=== PATIENT | male | born 1930 | race Caucasian/White ===

== ENCOUNTER 2016-08-05 11:36 | Inpatient (IN) | payer MEDICARE, BC ==
[~2016-08-05] VITALS: Ht 169.4 cm; Wt 65.7 kg
[~2016-08-05 11:36] MED LIST: AMBIEN DPS10 MG PO; CARDIZEM CD360 MG PO; COUMADIN DPS3 MG PO; HYDROCODONE 5MG/5 MG PO; LOPRESSOR DPS50 MG PO; PROTONIX40 MG PO; SYNTHROID DPS0.05 MG PO; THERAPEUTIC MUL1 TAB PO; ZESTRIL DPS10 MG PO
--- NOTE | 2016-08-06 11:08 | CO ---
ADMIT: 08/05/2016 RM/LOC: 422 [facility] MR#: [id number] [address] [address] PAULETTE EASON [address] [place] [address] Consultation SEX: M AGE: 85 : 1930 DATE OF CONSULTATION: 08/06/2016 ATTENDING PHYSICIAN: Jeb Mahoney CONSULTING PHYSICIAN: Nereida Peerz APRN TIME IN: 0915 hours. TIME OUT: 0950 hours. REASON FOR CONSULTATION: Supportive care consultation was requested by Dr. Mahoney for discussion of goals for care. HISTORY OF PRESENT ILLNESS: Mr. Eason is an unfortunate 85-year-old male with a history of metastatic colon cancer. He presented to Dr. Elizondo's office on 08/05 and was found to have tachycardia hypotension and also profuse diarrhea. He had recently started a new course of chemotherapy which had actually been recently dose reduced within the last week. He has had progressive weakness related to his treatment and he states that things are not going all that well at home. He was admitted and further evaluation did reveal C. difficile and neutropenia. He has been verbalizing to providers that he is tired of living in his current condition. Due to his complexities, supportive care consultation was requested to discuss goals for care. In terms of advanced directives, the patient is a do not resuscitate/do not intubate status. The patient's Tiarra Eason whose phone #[phone] and [phone] is the patient's next-of-kin medical decision maker. I do not see that he has a living will or power of contract attorney on file. Symptomatically, the patient states that overall he is fairly comfortable. He is very tired as he did not sleep well last night. He reports that his appetite has been poor and that he has had progressive and ongoing weight loss. He does suffer with anxiety and sadness related to his diagnosis. PAST MEDICAL HISTORY: 1. Metastatic colon cancer. 2. Atrial fibrillation with RVR. 3. History of DVT. ALLERGIES: THE PATIENT IS ALLERGIC TO PENICILLIN. CURRENT MEDICATIONS: Please see the patient's MAR for specific routes and dosages. His current medications are as follows. 1. Normal saline. 2. D5 normal saline. 3. Flagyl. 4. Sandostatin. 5. Maalox. 6. Tylenol. ADMIT: 08/05/2016 RM/LOC: 422 [facility] MR#: [id number] [address] [address] PAULETTE EASON [address] [place] [address] Consultation SEX: M AGE: 85 : 1930 7. Surfak. 8. Nitrostat. SOCIAL HISTORY: The patient is . He is retired truck rental service attendant. He lives in his acreage and enjoys caring for his acreage. He is a previous smoker. FAMILY HISTORY: He has multiple family members with a history of cardiovascular disease. He reports that his brother of colon cancer. FUNCTIONAL REVIEW: Prior to his hospital stay, he was at home. He states that he could perform his ADLs, but then it was getting more difficult. His palliative performance scale prior to admission was around 60%. Currently, he is mostly in bed. He is requiring considerable to mainly assistance with ADLs. His intake is reduced. His current palliative performance scale is around 50%. REVIEW OF SYSTEMS: A 10-point review of systems was completed and other than those pertinent positives and negatives mentioned the HPI, it is negative. PHYSICAL EXAMINATION: GENERAL: The patient examined in the bed. He is in no acute distress. VITAL SIGNS: Temperature 99.4, pulse 155, respirations 14, blood pressure 98/57, oxygen 93% on room air. HEENT: Head is normocephalic. Pupils are equal, round, and reactive with a diameter of 3 mm bilaterally. Oral mucosa pink and moist with fair dentition. NECK: Supple. RESPIRATORY: Respirations are equal, nonlabored at rest. LUNGS: Diminished in the bases bilaterally. CARDIOVASCULAR: Tachycardic. No edema noted. GASTROINTESTINAL: Soft and nontender. Bowel sounds are positive. MUSCULOSKELETAL: Generalized weakness. No obvious joint deformities. INTEGUMENTARY: Skin turgor is fair. No rashes or wounds noted. NEUROLOGIC: Alert and oriented x3. He will follow commands. PSYCHIATRIC: Calm and cooperative. No agitation or delirium noted. DIAGNOSTIC DATA: Sodium 137, potassium 4.1, BUN 17, creatinine 1.0, total protein 5.3, albumin 2.2. WBC is 2.1, hemoglobin 7.6, hematocrit 23.0, and platelets 52. IMPRESSION: 1. Debility. 2. Fatigue. 3. Anxiety. 4. Malaise. 5. Weight loss. 6. Severe protein-calorie malnutrition. 7. Metastatic colon cancer. ADMIT: 08/05/2016 RM/LOC: 422 [facility] MR#: [id number] [address] [place] [id number] PAULETTE EASON [address] [place] [id number] Consultation SEX: M AGE: 85 : 1930 8. Clostridium difficile. 9. Palliative care. 10.The patient is a DNR/DNI. PLAN OF TREATMENT: 1. I was able to meet with the patient at the bedside. We reviewed his overall status and goals for the time ahead. He is tearful and states that he is tired of living in his current poor quality of life. We did discuss the time ahead and he states that he is willing to do more treatment, but feels that he is likely nearing the point where he wants to focus more on comfort only. We did review the hospice philosophy for the future and he states that although he is not ready for hospice quite yet, he states that he may be nearing this time. He struggles with his family as he states that they are having a hard time accepting his decline. Much support was given to him. He also struggles spiritually in terms of what is after this life. I did offer to contact his fish flipper or have a social worker health services see, but he declined these offers. He is appreciative of our discussion and agrees to ongoing discussions in the time ahead. 2. The patient does confirm that he wishes to be a do not resuscitate/do not intubate status and this is reflected on the chart. 3. We will continue to follow along in the care of this patient. Unfortunately, the supportive care PICK UP DRIVER will be available starting this afternoon through 08/14. I will have the Supportive Care nurse to check on the patient to offer support during the time ahead. We would like to thank Dr. Mahoney for the invitation to participate in this patient's care. Total consultation time was 35 minutes from 0915 hours to 0950 hours with 20 minutes from 0920 hours to 0940 hours spent [id number] with the patient providing counseling and coordination of care. Nereida Perez, LEONOR/ tyral JOB #: [id number] CC: Jeb Mahoney, Attending Physician Jeb Mahoney, Family Physician
[2016-08-08] MEDS ORDERED: KLOR-CON 1010 MEQ PO (21:03)
[2016-08-08] MEDS ORDERED: NEURONTIN DPS300 MG PO (21:03)
[2016-08-08] MEDS ORDERED: PROTONIX40 MG PO (21:03)
[2016-08-08] MEDS ORDERED: TIAZAC180 MG PO (21:03)
[2016-08-08] MEDS ORDERED: NORCO 5-325 TA1 EACH PO (21:04)
[2016-08-08] MEDS ORDERED: AMBIEN DPS10 MG PO (21:04)
[2016-08-08] MEDS ORDERED: ZOFRAN8 MG PO (21:04)
[2016-08-08] MEDS ORDERED: SYNTHROID DPS0.05 MG PO (21:04)
[2016-08-08] MEDS ORDERED: [UNRECOGNIZED DRUG - OTHER] PO (21:04)
[2016-08-08] MEDS ORDERED: CLINDAMYCIN TP (21:05)
[2016-08-08] MEDS ORDERED: VISTARIL-DPS25 MG PO (21:05)
[2016-08-08] MEDS ORDERED: THERA1 EACH PO (21:06)
[2016-08-08] MEDS ORDERED: MARYS PO (21:06)
[2016-08-08] MEDS ORDERED: TEARS NATURAL D15 ML OU (21:06)
[2016-08-08] MEDS ORDERED: ZANTAC DPS150 MG PO (21:06)
[2016-08-08] MEDS ORDERED: FLAGYL-DPS500 MG PO (21:07)
[2016-08-08] MEDS ORDERED: GRANIX480 MCG/0. SQ (21:07)
--- NOTE | 2016-08-11 08:25 | HP ---
ADMIT: 08/05/2016 RM/LOC: 422 [facility] MR#: [id number] [address] [place] [id number] PAULETTE EASON [address] [place] [address] History and Physical SEX: M AGE: 85 : 1930 DATE OF SERVICE: 08/05/2016 REASON FOR HOSPITALIZATION: Dehydration and diarrhea. HISTORY OF PRESENT ILLNESS: An 85-year-old male patient, who Dr. Elizondo saw in his clinic today, and the patient was found to be tachycardic, hypotensive, and complained of persistent diffuse diarrhea. He was also noted to have had a recent new course of chemotherapy which was actually dose reduced as a trial within the last week. Since that time, he has had progressive weakness, and today the patient reports taht he is unable to stand up out of a chair on his own power. The patient does have a medical history of atrial fibrillation with rapid ventricular response, metastatic colon cancer. He has had a prior history of DVT and pneumonia. SOCIAL HISTORY: He is . He has family at bedside. FAMILY HISTORY: Noncontributory. REVIEW OF SYSTEMS: Patient reports general weakness, diarrhea. No current vomiting. He has had some nausea. He denies any specific fevers or chest pains. PHYSICAL EXAMINATION: GENERAL: On exam, the patient is pleasant, but obviously weak. He is lying supine in bed. HEART: Tachycardic and regular. LUNGS: Clear. ABDOMEN: Hyperactive. EXTREMITIES: He has no peripheral edema. LABORATORY DATA: His BUN is 17, creatinine 1.0, magnesium 1.9. Hemoglobin is ADMIT: 08/05/2016 RM/LOC: 422 [facility] MR#: [id number] [address] [place] [id number] PAULETTE EASON [address] [place] [address] History and Physical SEX: M AGE: 85 : 1930 8.9. LABORATORY AND DIAGNOSTIC DATA: EKG shows SVT. Stool evaluation for C. difficile is pending. Chest x-ray is negative. IMPRESSION: 1. Dehydration. 2. Diarrhea. 3. Supraventricular tachycardia. PLAN: Admit, hydrate, journeyman tool and die maker, cover for the possibility of C. difficile colitis until we have stool studies available for review. Jeb Mahoney DO/ pippa JOB #: [id number] CC: Jeb Mahoney, Attending Physician Jeb Mahoney, Family Physician
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
--- NOTE | 2016-10-01 08:12 | DS ---
ADMIT: 08/05/2016 RM/LOC: 422 [facility] MR#: [id number] [address] [address] PAULETTE EASON [address] [place] [address] Discharge Summary SEX: M AGE: 85 : 1930 ADMISSION DATE: 08/05/2016 DISCHARGE DATE: 08/08/2016 REASON FOR HOSPITALIZATION: Metastatic colon cancer, presented with general weakness and persistent diarrhea, progressive weakness, and dehydration. His family was unable to provide his cares at home. HOSPITAL COURSE: He was admitted and started on IV hydration, oral Flagyl therapy, and underwent stool evaluation. He did have SVT with a heart rate sustained in the 110 to 120 range. We asked Cardiology to see, but also asked for palliative care assessment. We made him DNR at his request. He was anemic and was transfused. Oncology saw the patient and Dr. Elizondo made recommendations regarding the use of Granix as well as Sandostatin therapy. Cardiology felt that his SVT related to his dehydrated status. He was found to have C. difficile colitis and again this was treated with oral Flagyl. He was also given oral Cardizem for heart rate control. Dr. Rodriguez saw the patient on the and diagnosed him with a 2:1 atrial flutter, and agreed with the use of Cardizem, but did not have much else to offer under the circumstances. By 08/08/2016, he was reporting that he was feeling well. His stools were slowing and he wanted to be dismissed home. He was dismissed on oral Flagyl. He was given potassium supplementation prior to dismissal, and was asked to return to see me in 10 to 14 days for recheck. FINAL DIAGNOSES: 1. Clostridium difficile colitis. 2. Metastatic colon cancer. 3. Atrial flutter/supraventricular tachycardia. 4. Dehydration. Jeb Mahoney DO/ modl JOB #: [id number] CC: Jeb Mahoney DO, Attending Physician Jeb Mahoney DO, Family Physician
== END 2016-08-08 16:15 | disposition home or self-care (01) | DRG 371 ==
LOC: 4PCU 11:36
PROVIDERS: ADMIT Internal Medicine
PROC: 30233N1 Transfusion of Nonautologous Red Blood Cells into Peripheral Vein, Percutaneous Approach (ICD-10-PCS; principal; 2016-08-06)
DX: A04.7 Enterocolitis due to Clostridium difficile (principal); E43 Unspecified severe protein-calorie malnutrition; D61.810 Antineoplastic chemotherapy induced pancytopenia; C78.7 Secondary malignant neoplasm of liver and intrahepatic bile duct; I48.92 Unspecified atrial flutter; I95.9 Hypotension, unspecified; I47.1 Supraventricular tachycardia; I48.0 Paroxysmal atrial fibrillation; E86.0 Dehydration; E03.9 Hypothyroidism, unspecified; I10 Essential (primary) hypertension; F32.9 Major depressive disorder, single episode, unspecified; I34.0 Nonrheumatic mitral (valve) insufficiency; F41.9 Anxiety disorder, unspecified; Z85.038 Personal history of other malignant neoplasm of large intestine; Z86.718 Personal history of other venous thrombosis and embolism; Z66 Do not resuscitate; Z87.891 Personal history of nicotine dependence

== ENCOUNTER 2016-09-01 10:08 | Inpatient (IN) | payer MEDICARE, BC ==
[~2016-09-01] VITALS: Ht 170.2 cm; Wt 67.8 kg
[~2016-09-01 10:08] MED LIST changes: +CLINDAMYCIN TP; +FLAGYL-DPS500 MG PO; +GRANIX480 MCG/0. SQ; +KLOR-CON 1010 MEQ PO; +MARYS PO; +NEURONTIN DPS300 MG PO; +NORCO 5-325 TA1 EACH PO; +TEARS NATURAL D15 ML OU; +THERA1 EACH PO; +TIAZAC180 MG PO; +VISTARIL-DPS25 MG PO; +ZANTAC DPS150 MG PO; +ZOFRAN8 MG PO; +[UNRECOGNIZED DRUG - OTHER] PO
--- NOTE | 2016-09-17 15:23 | ER ---
ADMIT: 09/01/2016 RM/LOC: 432 [facility] MR#: [id number] [address] [address] RENNY EASONE Bharathi [address] [place] [address] Emergency Room Report SEX: M AGE: 85 : 1930 DATE: 09/01/2016 ADDENDUM: This is an 85-year-old white male with known metastatic colon cancer probably end-stage. Coming in with shortness of breath. He was in the hospital recently for pneumonia. CT scan is suggesting that he has recurrence of this and has significant bilateral pleural effusions. While his lactate is not elevated, he does have an elevated white count of 17,000. His hemoglobin is 9.9. He is allergic to penicillin and had recently been treated for pneumonia. So, we are going to treat him with the aztreonam and vancomycin regimen. I spoke with Dr. Mahoney. He will admit him as well as family I spoke with as well. CONDITION AT DISCHARGE: Serious. Tyrone Doyle MD/ pippa JOB #: [id number] CC: Jeb Mahoney DO, Attending Physician Jeb Mahoney DO, Family Physician
--- NOTE | 2016-10-01 08:12 | DS ---
ADMIT: 09/01/2016 RM/LOC: 432 [facility] MR#: [id number] [address] [address] PAULETTE EASON [address] [place] [address] Discharge Summary SEX: M AGE: 85 : 1930 ADMISSION DATE: 09/01/2016 DISCHARGE DATE: 09/07/2016 REASON FOR HOSPITALIZATION: Pneumonia. HISTORY OF PRESENT ILLNESS: This is a patient who has metastatic colon cancer and had been admitted to the [facility] where he had received care and then ultimately transferred to [place] for further management. He was also found to have bilateral pleural effusions. Upon arrival here, I had a lengthy discussion with the patient's family. The patient had expressed his wishes to no longer pursue cancer intervention and stated that he was ready to . He did not want resuscitative measures or aggressive interventions. The family did initially have some trouble accepting his wishes but ultimately agreed to palliative comfort cares and then hospice management. As a palliative maneuver, we did make arrangements for bilateral PleurX catheters to drain his effusions. He did have an E. coli urinary tract infection and this was treated with antibiotic therapy. We engaged [facility] to assist with cares once he was dismissed home at the family's request. Withdrawal of pleural fluid did improve his symptoms and respiratory status. On 09/07 he was stable, except for hiccups. We did try him on a course of Marinol to suppress pickups and improve his appetite. He was dismissed home with hospice management and consultation. FINAL DIAGNOSES: 1. Metastatic colon cancer. 2. Recent pneumonia, treated at [facility] with bilateral pleural effusions causing symptomatic dyspnea. Jeb Mahoney DO/ pippa JOB #: [id number] CC: Jeb Mahoney DO, Attending Physician Jeb Mahoney DO, Family Physician
== END 2016-09-07 15:45 | disposition hospice, home (50) | DRG 871 ==
LOC: ER 10:08 → 4PCU 14:00
PROVIDERS: ADMIT Internal Medicine
PROC: 0W9930Z Drainage of Right Pleural Cavity with Drainage Device, Percutaneous Approach (ICD-10-PCS; principal; 2016-09-04)
PROC: 0W9B30Z Drainage of Left Pleural Cavity with Drainage Device, Percutaneous Approach (ICD-10-PCS; 2016-09-05)
DX: A41.51 Sepsis due to Escherichia coli [E. coli] (principal); J18.9 Pneumonia, unspecified organism; Z51.5 Encounter for palliative care; J91.8 Pleural effusion in other conditions classified elsewhere; E46 Unspecified protein-calorie malnutrition; C78.7 Secondary malignant neoplasm of liver and intrahepatic bile duct; C18.9 Malignant neoplasm of colon, unspecified; N39.0 Urinary tract infection, site not specified; D63.0 Anemia in neoplastic disease; J44.9 Chronic obstructive pulmonary disease, unspecified; K21.9 Gastro-esophageal reflux disease without esophagitis; I10 Essential (primary) hypertension; E03.9 Hypothyroidism, unspecified; G58.8 Other specified mononeuropathies; I48.2 Chronic atrial fibrillation; Z66 Do not resuscitate